=== PATIENT | female | born 1945 | race Two or more races ===

== ENCOUNTER → 2024-10-06 | Outpatient (CLI) | payer MEDICARE, MEDICAID, SELFPAY ==
--- NOTE | 2024-10-06 07:45 | XR_ITS ---
Examination: Retroperitoneal ultrasound, complete Technique: Multiple high resolution grayscale images of the retroperitoneum obtained, including kidneys and bladder. Exam date and time:October 06, 2024 0806 hours INDICATIONS: Chronic kidney disease diagnosis stage III FINDINGS: Right kidney 9.7 x 5.9 x 6.0 cm cortex 1.1 cm Left kidney 10.3 x 4.4 x 5.0 cm renal cortex 1.7 cm Mild bilateral hydronephrosis Mild bilateral renal parenchymal scar formation No renal calculi No bladder mass or bladder calculi Bladder prevoid volume 157 cc, unable to void IMPRESSION: Mild bilateral hydronephrosis Mild bilateral renal parenchymal scar formation
== END | disposition home or self-care (01) ==
PROVIDERS: PCP Specialist; Referring Provider Internal Medicine Nephrology; Visit Provider Internal Medicine Nephrology
DX: N13.30 Unspecified hydronephrosis (principal); N28.89 Other specified disorders of kidney and ureter
CPT/HCPCS: 76770